=== PATIENT | female | born 1970 | race Caucasian/White ===

== ENCOUNTER → 2018-04-05 14:31 | Outpatient (CLI) | payer OTHER, SELFPAY | PROVIDERS: Family Provider Physician Assistant Medical; PCP Physician Assistant Medical; Visit Provider Physician Assistant Medical | DX: R07.9 Chest pain, unspecified (principal) | CPT/HCPCS: 93016; 93017; 93018 ==

== ENCOUNTER → 2018-04-12 14:16 | Outpatient (CLI) | payer OTHER, SELFPAY ==
--- NOTE | 2018-04-12 14:19 | DI.RAD.S_ITS ---
PROCEDURE: XR CHEST 2V INDICATIONS: lung nodule prior study TECHNIQUE: 2 views of the chest were acquired. COMPARISON: [facility], , CHEST 1 VIEW, 01/02/2018, 17:50. FINDINGS: Surgical changes and devices: None. Lungs and pleura: No pleural effusions or pneumothorax. Lungs are clear. Mediastinum: Mediastinal contours are normal. Heart size is normal. Bones and chest wall: No suspicious bony abnormalities. Soft tissues appear unremarkable. IMPRESSION: No definite nodule seen involving the right lung base on today's examination. Dictated by: Nahum EM Interpreted: Claude Yan MD on 04/12/2018 at 14:43 Approved by: Jake Frost M.D. on 04/15/2018 at 10:19
== END ==
PROVIDERS: PCP Physician Assistant Medical; Visit Provider Family Medicine
DX: R91.1 Solitary pulmonary nodule (principal)
CPT/HCPCS: 71046

== ENCOUNTER 2018-12-30 16:17 | Emergency (ER) | payer OTHER, SELFPAY ==
[2018-12-30 16:39] VITALS: BP 146/93; PULSE 72; RESP 18; TEMP 36.1; O2SAT 98; BMI 32.3
[2018-12-30 17:04] LABS: Bacteria Urine None Seen; RBC Urine None Seen (0-5/HPF); WBC Urine None Seen (0-5/HPF)
[2018-12-30 17:15] VITALS: BP 117/74; PULSE 78; RESP 19
--- NOTE | 2018-12-30 17:20 | DI.CT.S_ITS ---
PROCEDURE: CT HEAD/BRAIN WO CON INDICATIONS: right arm numbness TECHNIQUE: Noncontrast 4.5 mm thick angled axial sections acquired from the foramen magnum to the vertex, with coronal and sagittal reformats. For radiation dose reduction, the following was used: automated exposure control, adjustment of mA and/or kV according to patient size. COMPARISON: None. FINDINGS: Image quality: Excellent. CSF spaces: Basal cisterns are patent. No extra-axial fluid collections. Ventricles are normal in size and shape. Brain: No midline shift. No intracranial masses or hemorrhage. Garcia-white matter interface is normal. Skull and face: Calvarium and visualized facial bones are intact, without suspicious lesions. Sinuses: Visualized sinuses and mastoids are clear. IMPRESSION: No acute intracranial process is seen. If there is strong clinical suspicion for an acute stroke, please consider an MRI for further evaluation, as it is more sensitive (assuming that there is no contraindication to MRI). Dictated by: Eleazar Fleming M.D. on 12/30/2018 at 16:57 Approved by: Eleazar Fleming M.D. on 12/30/2018 at 16:58
[2018-12-30 17:35] LABS: Add Manual Diff / Slide Review NO; Basophils Absolute Auto 100 /uL (0-100); Eosinophils Absolute Auto 100 /uL (0-450); Eosinophils Percent Auto 1.2 % (2-4); Hematocrit 36.6 % (36-46); Hemoglobin 11.6 g/dL (12.0-16.0); Lymphocytes Absolute Auto 2900 /uL (1100-4500); Lymphocytes Percent Auto 26.5 % (25-40); Mean Corpuscular HGB Conc 31.8 % (30-36); Mean Corpuscular Hemoglobin 25.4 PG (26-34); Mean Corpuscular Volume 79.8 fL (80-100); Monocytes Absolute Auto 1000 /uL (0-900); Monocytes Percent Auto 9.3 % (3-14); Neutrophils Absolute Auto 6800 /uL (1500-7000); Platelet Count 335 X10^3/uL (150-400); Red Blood Cell Count 4.58 X10^6/uL (4.0-5.2); Red Cell Distribution Width 16.6 % (11.6-14.8); White Blood Cell Count 10.9 X10^3/uL (4.5-11.0)
[2018-12-30 17:37] LABS: INR 0.9 (0.9-1.3); Prothrombin Time 10.8 SECONDS (10.1-12.7)
[2018-12-30 17:39] LABS: PTT Partial Thromboplastin Tim 25 SECONDS (26.4-36.2)
[2018-12-30 17:43] LABS: Culture Indicated Urine Specimen Cultured; Squamous Epithelial Cell Urine 1-5 /HPF
[2018-12-30 17:43] LABS: BUN Creatinine Ratio 17.5 (6-22); Blood Urea Nitrogen 14 mg/dL (7-17); Calcium 8.9 mg/dL (8.4-10.2); Carbon Dioxide 20 mmol/L (22-32); Chloride 107 mmol/L (98-107); Estimated Glomerular Filt Rate > 60.0 mL/min (>60); Glucose 88 mg/dL (70-100); HEMOLYSIS < 15 (0-50); Potassium 3.6 mmol/L (3.4-5.1); Sodium 139 mmol/L (137-145)
[2018-12-30 17:55] LABS: Troponin I < 0.012 ng/mL (0.01-0.034)
[2018-12-30 18:04] VITALS: BP 142/83; PULSE 52; RESP 18; O2SAT 100
--- NOTE | 2018-12-30 18:19 | ED_ITS ---
HPI - Neuro Symptoms/Deficit General Chief Complaint: Neuro Symptoms/Deficit Stated Complaint: NAUSEA NUMBNESS OF RT ARM SOME SWELLING Time Seen by Provider: 12/30/18 17:14 Source: patient Mode of arrival: ambulatory Limitations: no limitations History of Present Illness HPI Narrative: Patient is a 48-year-old female who presents with right sided symptoms starting around 2:00 p.m.. She said she was sorting boxes of screws and things she was in walking down the hallway when she got that her right forearm and right hand were numb. She did not have much control rate was unable to sign her name when she arrived to the ED. She also has some right-sided facial numbness she was dizzy and lightheaded feeling nauseated but no vomiting. She did not notice any leg weakness at the time. She is having blurry vision but no black or loss of vision. Her right hand and arm symptoms have now improved lately. Onset (ago): hour(s) Location: speech, right face and right arm On Anticoagulants: No Related Data Home Medications Medication Instructions Recorded Confirmed aspirin 81 mg chewable tablet 81 mg PO DAILY 04/12/18 12/30/18 amlodipine 5 mg tablet 5 mg PO QPM tab 09/10/18 12/30/18 metoprolol succinate 100 mg PO QPM 12/30/18 12/30/18 Allergies Allergy/AdvReac Type Severity Reaction Status Date / Time No Known Allergies Allergy Uncoded 09/10/18 16:19 Review of Systems Review of Systems ROS Unobtainable: All systems reviewed & are unremarkable except as noted in HPI and below Constitutional Denies chills, Denies fever(s), Denies lethargy and Denies weakness Eyes Reports blurry vision and Denies diplopia ENT Ears, Nose, Mouth, and Throat: Denies change in voice, Denies neck pain and Denies sore throat Cardiovascular Denies chest pain, Denies irregular heart rhythm, Denies lightheadedness, Denies palpitations, Denies dyspnea, Denies dyspnea on exertion and Denies orthopnea Respiratory Denies cough, Denies dyspnea, Denies dyspnea on exertion and Denies wheezing Gastrointestinal Gastrointestinal: Denies abdominal pain, Denies change in bowel habits, Denies diarrhea, Denies nausea and Denies vomiting Genitourinary Denies hematuria, Denies flank pain, Denies urinary incontinence and Denies urinary urgency Musculoskeletal Denies neck pain Integumentary/Breasts Denies pruritus, Denies erythema, Denies rash and Denies wounds Neurologic Denies confusion and Denies weakness Psychiatric Denies anxiety, Denies confusion, Denies depression, Denies homicidal ideation and Denies suicidal ideation Endocrine Denies palpitations Hematologic/Lymphatic Denies easy bruising Allergic/Immunologic Denies wheezing PFSH Medical History Obesity (BMI 30.0-34.9) (Chronic) Low back pain (Chronic) Hypertension (Chronic) Lung nodule (Resolved) Family History Mother Hypertension Hyperlipidemia Diabetes mellitus Cancer Father Myocardial infarct Arrhythmia Social History marital status: unmarried,single household members: children pets and animals: Yes education level: master's degree occupational status: employed other: gardening,hiking water heater temp set < 120 deg: No working smoke detector in home: Yes fire extinguisher in home: Yes carbon monox detector in home: Yes firearms in home: No Smoking Status: Never smoker alcohol intake: current substance use type: does not use during the past year weight has: increased > 10 lbs well-balanced diet: about half the time daily servings fruits/ve-4 caffeine: Yes eating out: 1-3 times/week frequency: 1-2 times per week duration: 15-30 minutes/day Family History Mother Hypertension Hyperlipidemia Diabetes mellitus Cancer Father Myocardial infarct Arrhythmia Social History marital status: unmarried,single household members: children pets and animals: Yes education level: master's degree occupational status: employed other: gardening,hiking water heater temp set < 120 deg: No working smoke detector in home: Yes fire extinguisher in home: Yes carbon monox detector in home: Yes firearms in home: No Smoking Status: Never smoker alcohol intake: current substance use type: does not use during the past year weight has: increased > 10 lbs well-balanced diet: about half the time daily servings fruits/ve-4 caffeine: Yes eating out: 1-3 times/week frequency: 1-2 times per week duration: 15-30 minutes/day Exam Initial Vital Signs Initial Vital Signs: Vital Signs Temperature 97.0 F L 12/30/18 16:39 Pulse Rate 72 12/30/18 16:39 Respiratory Rate 18 12/30/18 16:39 Blood Pressure 146/93 H 12/30/18 16:39 Pulse Oximetry 98 12/30/18 16:39 Const General: cooperative and well developed Nutritional Appearance: well nourished Orientation: alert, awake, oriented x3 and not confused [facility] Head: normal to inspection and normocephalic Eyes General: appearance normal, both eyes and all related structures Eyelids: eyelids normal Conjunctivae: conjunctivae normal Sclera: sclerae normal Pupils: PERRL EOM: EOM intact bilaterally Neck Neck: normal visual inspection, trachea midline, No lymphadenopathy, No midline deformity and No JVD Lymphatic: No lymphedema Chest Chest: normal inspection of the chest Resp Effort & Inspection: normal respiratory effort, able to speak in complete sentences, no respiratory distress and no use of accessory muscles Auscultation: clear to auscultation bilaterally, no rales, no rhonchi and no wheezes Cardio Rate: regular rate Rhythm: regular rhythm Heart Sounds: no click, no gallops, no murmurs and no rubs Pulses: normal peripheral pulses GI Inspection: non-distended Palpation: soft, no hepatosplenomegaly, No guarding, No pulsatile mass and No tender Auscultation: normal bowel sounds Neuro General: alert, awake and oriented x3 Cranial Nerves: CN's II-XI intact bilaterally Speech: speech normal Sensory Exam: no sensory deficits noted Coordination: suqsep-uv-khop test normal and qhic-rf-srrr test normal Scores ABCD2 Age >= 60 years: no Initial BP. Either SBP >= 140 or DBP >= 90.: yes Clinical features of the TIA: unilateral weakness Duration of symptoms: 10-59 minutes History of diabetes: no ABCD2 Score: 4 NIH Stroke Scale Level of Conciousness: Alert, keenly responsive Ask month/age: Answers both questions correctly. Open/close eyes, close hand: Performs both tasks correctly Best gaze horizontal: Normal Visual mccain: No visual loss Facial palsy: Normal symetrical movement Left arm drift: No drift for full 10 sec Right arm drift: No drift for full 10 sec Left leg drift: No drift for full 10 sec Right leg drift: Drifts down, not to bed Limb ataxia: Absent Sensory on face/arms/legs: Normal, no sensory loss Best language: No aphasia, normal Dysarthria: Normal Extinction or inattention: No abnormality Total NIH Stroke scale score: 1 Course Orders Ordered: ED Orders 12/30/18 16:55 Basic Metabolic Panel Stat Complete Blood Count AUTO DIFF Stat Partial Thromboplastin Time Stat Prothrombin Time INR Stat Troponin I Stat 12/30/18 17:00 Urine Culture Stat Urine Microscopic Stat 12/30/18 17:09 EKG-12 Lead Routine 12/30/18 17:20 CT head/brain wo con Stat 12/30/18 18:33 CT angio head and neck Stat Discontinued Medications Aspirin (Aspirin Chew) 324 mg PO NOW ONE Stop: 12/30/18 18:35 Last Admin: 12/30/18 19:06 Dose: 324 mg Consultations Consultation #1: Dr. Rachel on-call for Dr. Garcia, has been updated patient's symptoms and test results. Resolving symptoms. Recommend taking aspi rin daily as following up closely with for further testing. Time: 20:15 Vital Signs - 8 hr 12/30/18 18:04 12/30/18 19:12 12/30/18 19:30 Pulse Rate 52 L 64 65 Respiratory Rate 18 15 16 Blood Pressure Blood Pressure [Right Arm] 142/83 H 119/65 122/70 Pulse Oximetry 100 99 97 12/30/18 20:29 Pulse Rate 65 Respiratory Rate 17 Blood Pressure 121/77 Blood Pressure [Right Arm] Pulse Oximetry 96 MDM - Neuro Symptoms/Deficit Lab Data Attestation: I reviewed the patient's lab results. Result diagrams: 12/30/18 16:55 12/30/18 16:55 Lab Results 12/30/18 12/30/18 12/30/18 Range/Units 16:55 16:55 16:55 WBC 10.9 (4.5-11.0) X10^3/uL RBC 4.58 (4.0-5.2) X10^6/uL Hgb 11.6 L (12.0-16.0) g/dL Hct 36.6 (36-46) % MCV 79.8 L (80-100) fL MCH 25.4 L (26-34) PG MCHC 31.8 (30-36) % RDW 16.6 H (11.6-14.8) % Plt Count 335 (150-400) X10^3/uL Neut % (Auto) 62.0 (50-75) % Lymph % (Auto) 26.5 (25-40) % [place] % (Auto) 9.3 (3-14) % Eos % (Auto) 1.2 L (2-4) % Baso % (Auto) 1.0 (0-2) % Neut # (Auto) 6800 (8417-1027) /uL Lymph # (Auto) 2900 (7339-4619) /uL [place] # (Auto) 1000 H (0-900) /uL Eos # (Auto) 100 (0-450) /uL Baso # (Auto) 100 (0-100) /uL PT 10.8 (10.1-12.7) SECONDS INR 0.9 (0.9-1.3) APTT 25 L (26.4-36.2) SECONDS Sodium 139 (137-145) mmol/L Potassium 3.6 (3.4-5.1) mmol/L Chloride 107 (98-107) mmol/L Carbon Dioxide 20 L (22-32) mmol/L BUN 14 (7-17) mg/dL Creatinine 0.80 (0.52-1.04) mg/dL Estimated GFR > 60.0 (>60) mL/min BUN/Creatinine Ratio 17.5 (6-22) Glucose 88 (70-100) mg/dL Calcium 8.9 (8.4-10.2) mg/dL Troponin I < 0.012 (0.01-0.034) ng/mL Urine RBC (0-5/HPF) Urine WBC (0-5/HPF) Ur Squamous Epith Cells Urine Bacteria (None) Ur Culture Indicated? 12/30/18 Range/Units 17:00 WBC (4.5-11.0) X10^3/uL RBC (4.0-5.2) X10^6/uL Hgb (12.0-16.0) g/dL Hct (36-46) % MCV (80-100) fL MCH (26-34) PG MCHC (30-36) % RDW (11.6-14.8) % Plt Count (150-400) X10^3/uL Neut % (Auto) (50-75) % Lymph % (Auto) (25-40) % [place] % (Auto) (3-14) % Eos % (Auto) (2-4) % Baso % (Auto) (0-2) % Neut # (Auto) (3022-2920) /uL Lymph # (Auto) (5975-8722) /uL [place] # (Auto) (0-900) /uL Eos # (Auto) (0-450) /uL Baso # (Auto) (0-100) /uL PT (10.1-12.7) SECONDS INR (0.9-1.3) APTT (26.4-36.2) SECONDS Sodium (137-145) mmol/L Potassium (3.4-5.1) mmol/L Chloride (98-107) mmol/L Carbon Dioxide (22-32) mmol/L BUN (7-17) mg/dL Creatinine (0.52-1.04) mg/dL Estimated GFR (>60) mL/min BUN/Creatinine Ratio (6-22) Glucose (70-100) mg/dL Calcium (8.4-10.2) mg/dL Troponin I (0.01-0.034) ng/mL Urine RBC None seen (0-5/HPF) Urine WBC None seen (0-5/HPF) Ur Squamous Epith Cells 1-5 /hpf Urine Bacteria None seen (None) Ur Culture Indicated? Specimen cultured Point of Care Testing Test Results Negative Urine Dip Bedside Urine Glucose Negative Bedside Urine Bilirubin - Negative Bedside Urine Ketone - Negative Urine Specific [place] 1.010 Bedside Urine Occult Blood + Bedside Urine pH 6.0 Bedside Urine Protein - Negative Bedside Urine Urobilinogen - Negative Bedside Urine Nitrite - Negative Bedside Urine Leukocytes +/- [address] scan - head: Radiologist's impression: PROCEDURE: CT HEAD/BRAIN WO CON INDICATIONS: right arm numbness TECHNIQUE: Noncontrast 4.5 mm thick angled axial sections acquired from the foramen magnum to the vertex, with coronal and sagittal reformats. For radiation dose reduction, the following was used: automated exposure control, adjustment of mA and/or kV according to patient size. COMPARISON: None. FINDINGS: Image quality: Excellent. CSF spaces: Basal cisterns are patent. No extra-axial fluid collections. Ventricles are normal in size and shape. Brain: No midline shift. No intracranial masses or hemorrhage. Garcia-white matter interface is normal. Skull and face: Calvarium and visualized facial bones are intact, without suspicious lesions. Sinuses: Visualized sinuses and mastoids are clear. IMPRESSION: No acute intracranial process is seen. If there is strong clinical suspicion for an acute stroke, please consider an MRI for further evaluation, as it is more sensitive (assuming that there is no contraindication to MRI). Dictated by: Eleazar Fleming M.D. on 12/30/2018 at 16:57 CTA head and Neck: Radiologist's impression: PROCEDURE: CT ANGIO HEAD AND NECK INDICATIONS: right leg and arm weakness no tpa TECHNIQUE: Pre-contrast 4.5 mm thick sections acquired from the foramen magnum to the vertex. After the administration of intravenous contrast, 1 mm thick sections acquired from the aortic arch through the [place] of Up. Post-contrast 4.5 mm thick sections then re- acquired from the foramen magnum to the vertex. 3-dimensional jldnkoa-misbhpgjn-hp ojection (MIP) and/or volume rendering reformats were acquired of the central intracranial vasculature and neck separately. COMPARISON: [facility], CT, CT HEAD/BRAIN WO CON, 12/30/2018, 17:17. FINDINGS: Image quality: Excellent. BRAIN: CSF spaces: Ventricles are normal in size and shape. Basal cisterns are patent. No extra-axial fluid collections. Brain: No midline shift. No intracranial bleeds or masses. Garcia-white matter interface appears intact. Skull and face: Calvarium and facial bones appear intact, without suspicious lesions. Orbits appear normal. Sinuses: There is an air-fluid level in the right maxillary sinus. Mastoids are clear. HEAD CT ANGIOGRAPHY: Anterior circulation: Intracranial internal carotid arteries are normal in size and flow. There is calcification in the cavernous segment of the right internal carotid artery. The flow within the paired anterior cerebral arteries is normal and symmetric. The flow within the middle cerebral arteries is normal and symmetric. The anterior communicating artery is seen. No aneurysms are seen. Posterior circulation: Visualized portions of the vertebral arteries demonst rate normal caliber, and join to form a normal appearing basilar artery. Flow within the posterior cerebral arteries is normal and symmetric. No aneurysms are seen. NECK CT ANGIOGRAPHY: Carotid system: The great vessels demonstrate a conventional anatomy as they arise from the aortic arch. The origins of the common carotid arteries appear patent. The common carotid arteries demonstrate normal caliber and courses. The bifurcation regions are both widely patent. The internal carotid arteries demonstrate normal calibers and courses. Posterior circulation: The origins of the vertebral arteries both appear widely patent. The more superior extracranial portions of both vertebral arteries also demonstrate normal courses and calibers. They join to form a normal appearing basilar artery. Soft tissues: Visualized neck soft tissues demonstrate no suspicious abnormal ities. Bones: No suspicious bony lesions. Visualized cervical spine appears normally aligned. There is severe degenerative disease at C5-C6 causing moderate central canal stenosis. IMPRESSION: 1. No acute intracranial abnormality. 2. Right maxillary sinusitis. 3. No high-grade stenosis or occlusion in anterior circulations. 4. No high-grade stenosis or occlusion in posterior circulations. 5. Normal cervical carotid arteries bilaterally. 6. Normal cervical vertebral arteries bilaterally. 7. Severe degenerative disc disease at C5-C6 causing moderate central canal stenosis. Any quantitative measurements of stenosis were performed using NASCET criteria. Dictated by: Roseline Saunders M.D. on 12/30/2018 at 19:34 ECG Data Attestation: I personally reviewed and interpreted this ECG as follows: Interpretation: Normal sinus rhythm rate 58 T-wave inversion noted in lead 3 similar to previous EKG no acute ST changes MDM Narrative Medical decision making narrative: Patient's right arm symptoms have improved she is not a candidate for tPA. After CT a patient is re-evaluated her right leg symptoms have also completely improved. She was not complaining of right leg symptoms when she arrived. In fact she said that she had some his right leg symptoms of while going was actually in physical therapy for some back issues in right leg issues. It is difficult for her to tell me if this is new or old. However it has resolved at this time. She does have a history of hypertension blood pressure initially slightly elevated however it has come down without any intervention. I spoke with patient's PCP will follow up as outpatient for possible MRI carotid Doppler and echocardiogram. Discussed with patient that this may be a mini-stroke recommended she take aspirin daily. I discussed all findings with the patient Education has been performed regarding treatment plan, diagnosis, warning signs and symptoms and all concerns have been addressed. Verbally agree with and understood all of the above. Discharge Plan Departure Patient Disposition: Home Clinical Impression: Transient cerebral ischemia Qualifiers: Transient cerebral ischemia type: unspecified Qualified Code(s): G45.9 - Transient cerebral ischemic attack, unspecified Discharge Date/Time: 12/30/18 20:30 Interventions: ED Discharge Assessment Last Done: 12/30/18 20:29 Instructions: DI for Transient Ischemic Attack Activity Restrictions/Additional Instructions: *You have been diagnosed with TIA *What to do: you will likely require further outpatient testing such as carotid Doppler, echocardiogram and MRI obvious can be scheduled in should be scheduled with your primary care doctor this week. *Continue to take medications as directed Aspirin 325 mg once a day *Follow up with your primary care provider in 2-3 days *Return to ER if you should have facial droop, confusion, difficulty speaking, weakness in 1 side or any new, worsening or concerning symptoms Prescriptions: No Action aspirin 81 mg tablet,chewable 81 mg PO DAILY RF: 0 amlodipine 5 mg tablet 5 mg PO QPM RF: 0 metoprolol succinate 100 mg tablet extended release 24 hr 100 mg PO QPM RF: 0 Referrals: Maura Garcia MD [Primary Care Provider] -
--- NOTE | 2018-12-30 18:33 | DI.CT.S_ITS ---
PROCEDURE: CT ANGIO HEAD AND NECK INDICATIONS: right leg and arm weakness no tpa TECHNIQUE: Pre-contrast 4.5 mm thick sections acquired from the foramen magnum to the vertex. After the administration of intravenous contrast, 1 mm thick sections acquired from the aortic arch through the [place] of Up. Post-contrast 4.5 mm thick sections then re-acquired from the foramen magnum to the vertex. 3-dimensional hzaukji-hdnhlraxo-nxxbkqozap (MIP) and/or volume rendering reformats were acquired of the central intracranial vasculature and neck separately. COMPARISON: [facility], CT, CT HEAD/BRAIN WO CON, 12/30/2018, 17:17. FINDINGS: Image quality: Excellent. BRAIN: CSF spaces: Ventricles are normal in size and shape. Basal cisterns are patent. No extra-axial fluid collections. Brain: No midline shift. No intracranial bleeds or masses. Garcia-white matter interface appears intact. Skull and face: Calvarium and facial bones appear intact, without suspicious lesions. Orbits appear normal. Sinuses: There is an air-fluid level in the right maxillary sinus. Mastoids are clear. HEAD CT ANGIOGRAPHY: Anterior circulation: Intracranial internal carotid arteries are normal in size and flow. There is calcification in the cavernous segment of the right internal carotid artery. The flow within the paired anterior cerebral arteries is normal and symmetric. The flow within the middle cerebral arteries is normal and symmetric. The anterior communicating artery is seen. No aneurysms are seen. Posterior circulation: Visualized portions of the vertebral arteries demonstrate normal caliber, and join to form a normal appearing basilar artery. Flow within the posterior cerebral arteries is normal and symmetric. No aneurysms are seen. NECK CT ANGIOGRAPHY: Carotid system: The great vessels demonstrate a conventional anatomy as they arise from the aortic arch. The origins of the common carotid arteries appear patent. The common carotid arteries demonstrate normal caliber and courses. The bifurcation regions are both widely patent. The internal carotid arteries demonstrate normal calibers and courses. Posterior circulation: The origins of the vertebral arteries both appear widely patent. The more superior extracranial portions of both vertebral arteries also demonstrate normal courses and calibers. They join to form a normal appearing basilar artery. Soft tissues: Visualized neck soft tissues demonstrate no suspicious abnormalities. Bones: No suspicious bony lesions. Visualized cervical spine appears normally aligned. There is severe degenerative disease at C5-C6 causing moderate central canal stenosis. IMPRESSION: 1. No acute intracranial abnormality. 2. Right maxillary sinusitis. 3. No high-grade stenosis or occlusion in anterior circulations. 4. No high-grade stenosis or occlusion in posterior circulations. 5. Normal cervical carotid arteries bilaterally. 6. Normal cervical vertebral arteries bilaterally. 7. Severe degenerative disc disease at C5-C6 causing moderate central canal stenosis. Any quantitative measurements of stenosis were performed using NASCET criteria. Dictated by: Roseline Saunders M.D. on 12/30/2018 at 19:34 Approved by: Roseline Saunders M.D. on 12/30/2018 at 19:42
[2018-12-30] MEDS: ASPIRIN 81 MG TAB 324 MG PO (19:06)
[2018-12-30 19:12] VITALS: BP 119/65; PULSE 64; RESP 15; O2SAT 99
[2018-12-30 19:30] VITALS: BP 122/70; PULSE 65; RESP 16; O2SAT 97
--- NOTE | 2018-12-30 20:28 | PC.NURSE ---
Pt stated it was difficult to use right arm, yet pt used right arm to gesture during conversation.
[2018-12-30 20:29] VITALS: BP 121/77; PULSE 65; RESP 17; O2SAT 96
== END 2018-12-30 20:30 | disposition home or self-care (01) ==
PROVIDERS: Emergency Medicine; Emergency Provider Emergency Medicine; Family Provider Physician Assistant Medical; PCP Family Medicine
DX: G45.9 Transient cerebral ischemic attack, unspecified (principal)
CPT/HCPCS: 36591; 70450; 70496; 70498; 80048; 81003; 81015; 81025; 84484; 85025; 85610; 85730; 87086; 93005; 99283; 99285; 99291; Q9967

== ENCOUNTER → 2019-01-06 06:07 | Outpatient (CLI) | payer OTHER, SELFPAY ==
--- NOTE | 2019-01-06 06:09 | DI.MRI.S_ITS ---
PROCEDURE: MR STROKE Pre- and post-contrast brain MRI, non-contrast brain MR angiogram, pre- and postcontrast neck MR angiogram INDICATIONS: likely TIA TECHNIQUE: Brain: Noncontrast axial T1 spin echo, axial T2 fast spin echo, sagittal and axial FLAIR, coronal T2 fast spin echo, axial gradient echo, axial diffusion and ADC through the brain. After the administration of contrast, axial 3D VIBE of the cranial vasculature and brain. Brain MRA: Non-contrast 3-D time of flight MR angiogram, with multiple xdnntpo-wqowigrav-iekwjlwexn (MIP) reformats performed. Neck MRA: Axial and sagittal TruFISP through the neck. Coronal dynamic MR angiogram during administration of contrast in the arterial and venous phases, with 3-dimenstional zupelxm-ykceotnij-wdbubrozye (MIP) reformats constructed from subtraction images. COMPARISON: [facility], CT, CT ANGIO HEAD AND NECK, 12/30/2018, 18:43. [facility], CT, CT HEAD/BRAIN WO CON, 12/30/2018, 17:17. FINDINGS: Image quality: Excellent. BRAIN: CSF spaces: Ventricles are normal in size and shape. Basal cisterns are patent. No extra-axial fluid collections. Brain: No intracranial bleeds or mass effects. Garcia-white matter interface is normal. Diffusion weighted images show no acute ischemic insults. There are minimal periventricular and subcortical white matter chronic microvascular ischemic changes. Brainstem appears normal. Normal intravascular flow voids are present. No abnormal intracranial enhancement. Skull and face: Calvarial marrow signal is normal. Orbits appear normal. Sinuses: Mucosal thickening causes complete opacification of the right maxillary sinus. mastoids are clear. BRAIN MR ANGIOGRAM: Anterior circulation: Intracranial internal carotid arteries are normal in size and enhancement. The flow within the paired anterior cerebral arteries is normal and symmetric. The flow within the middle cerebral arteries is normal and symmetric. The anterior communicating artery is seen. No stenoses, occlusions, or aneurysms. Posterior circulation: The visualized portions of the vertebral arteries demonstrate normal caliber, and join to form a normal appearing basilar artery. The flow within the posterior cerebral arteries is normal and symmetric. No stenoses, occlusions, or aneurysms. Dural sinuses demonstrate normal postcontrast enhancement. NECK MR ANGIOGRAM: Carotids: Great vessels demonstrate a conventional anatomy as they arise from the aortic arch. The origins of the common carotid arteries appear patent. The calibers and courses of both common carotid arteries are normal. The bifurcation regions appear normal bilaterally. The internal carotid arteries demonstrate normal course and caliber. Posterior circulation: The origins of the vertebral arteries appear patent. More superior portions of both vertebral arteries demonstrate normal course and caliber, and join to form a normal appearing basilar artery. Miscellaneous: Subclavian arteries appear patent. Pre-contrast images through the neck show no soft tissue abnormalities. IMPRESSION: BRAIN MRI: 1. No acute intracranial disease process. 2. No areas of acute or chronic infarction. 3. Minimal periventricular and subcortical white matter chronic microvascular ischemic changes. 4. Severe right maxillary sinusitis. BRAIN MR ANGIOGRAM: Negative examination. NECK MR ANGIOGRAM: Negative examination. Dictated by: Elba Singh MD, PhD on 01/06/2019 at 11:33 Approved by: Elba Singh MD, PhD on 01/06/2019 at 11:43
== END ==
PROVIDERS: PCP Family Medicine; Visit Provider Family Medicine
DX: G45.9 Transient cerebral ischemic attack, unspecified (principal); J32.0 Chronic maxillary sinusitis
CPT/HCPCS: 70553

== ENCOUNTER → 2019-04-21 09:00 | Outpatient (CLI) | payer OTHER, SELFPAY ==
[2019-04-21 10:11] LABS: Cholesterol 148 mg/dL (140-199); HDL Cholesterol 38 mg/dL (40-60); LDL Cholesterol Calculated 92 mg/dL (<100); Triglycerides 90 mg/dL (35-150)
== END ==
PROVIDERS: PCP Family Medicine; Visit Provider Family Medicine
DX: G45.9 Transient cerebral ischemic attack, unspecified (principal)
CPT/HCPCS: 36415; 80061

== ENCOUNTER → 2022-02-10 12:01 | Outpatient (CLI) | payer OTHER, MEDICAID, SELFPAY ==
[2022-02-10 13:15] LABS: Alanine Aminotransferase 25 IU/L (<35); Albumin 4.4 g/dL (3.5-5.0); Albumin Globulin Ratio 1.8 (1.0-2.8); Alkaline Phosphatase 71 U/L (38-126); Aspartate Aminotransferase 28 IU/L (14-36); BUN Creatinine Ratio 22.2 (6-22); Bilirubin Total 0.6 mg/dL (0.2-1.3); Blood Urea Nitrogen 20 mg/dL (7-17); Calcium 9.4 mg/dL (8.4-10.2); Carbon Dioxide 25 mmol/L (22-32); Chloride 110 mmol/L (98-107); Cholesterol 197 mg/dL (140-199); Estimated Glomerular Filt Rate > 60.0 mL/min (>60); Globulin 2.5 g/dL (1.7-4.1); Glucose 87 mg/dL (70-100); HDL Cholesterol 51 mg/dL (40-60); HEMOLYSIS < 15 (0-50); LDL Cholesterol Calculated 109 mg/dL (<100); Potassium 4.5 mmol/L (3.4-5.1); Sodium 141 mmol/L (137-145); Total Protein 6.9 g/dL (6.3-8.2); Triglycerides 185 mg/dL (35-150)
[2022-02-10 16:01] LABS: Microalbumin Urine Random 0.9 mg/dL (0-1.6)
[2022-02-10 16:03] LABS: Creatinine Urine Random 119.6 mg/dL; Microalbumi Creatinin Ratio Ur 7.5 ug/mg CR (<30)
== END ==
PROVIDERS: PCP Family Medicine; Referring Provider Family Medicine; Visit Provider Family Medicine
DX: E66.9 Obesity, unspecified (principal); I10 Essential (primary) hypertension
CPT/HCPCS: 36415; 80053; 80061; 82043; 82570

== ENCOUNTER → 2023-07-27 14:44 | Outpatient (CLI) | payer OTHER, SELFPAY ==
--- NOTE | 2023-07-27 14:45 | DI.MG.S_ITS ---
BILATERAL DIGITAL SCREENING MAMMOGRAM 3D/2D WITH CAD: 07/27/2023 CLINICAL: Routine screening. Family history of breast cancer. Comparison is made to exams dated: 03/11/2018 mammogram and 03/09/2017 mammogram - [facility]. There are scattered areas of fibroglandular density in both breasts (category b / 25%-50% glandular tissue). Current study was also evaluated with a Computer Aided Detection (CAD) system. No significant masses, calcifications, or other findings are seen in either breast. There has been no significant interval change. IMPRESSION: NEGATIVE There is no mammographic evidence of malignancy. A 1 year screening mammogram is recommended. Based on the Tyrer Cuzick model (a risk assessment model) the patient's lifetime risk is 17.9% and her 10 year risk is 4.8%. According to the ACR, ACS, and NCCN guidelines, an annual breast MRI exam along with mammogram is recommended if the patient's lifetime risk is 20% or greater. This exam was interpreted at Station ID: [id number]. NOTE: For mammograms, a report in lay terms will be sent to the patient. Approximately 15% of breast malignancies will not be visualized mammographically. In the management of a palpable breast mass, a negative mammogram must not discourage biopsy of a clinically suspicious lesion. Electronically Signed By: Damian clark/ruddy:07/27/2023 15:44:35 letter sent: Normal Exam ACR BI-RADS Category 1: Negative 3341F
== END ==
PROVIDERS: Family Provider Family Medicine; PCP Family Medicine; Referring Provider Family Medicine; Visit Provider Family Medicine
DX: Z12.31 Encounter for screening mammogram for malignant neoplasm of breast (principal); Z80.3 Family history of malignant neoplasm of breast
CPT/HCPCS: 77063; 77067

== ENCOUNTER 2023-08-14 08:06 | Day surgery (SDC) | payer OTHER, SELFPAY ==
[2023-08-14 08:22] VITALS: BMI 35.5
[2023-08-14 08:31] VITALS: BP 135/79; PULSE 68; RESP 16; TEMP 36.6; O2SAT 96
[2023-08-14] MEDS: LACTATED RINGERS 1,000 ML 150 ML IV (08:40)
--- NOTE | 2023-08-14 09:01 | PM.HP.1 ---
History of Present Illness History of Present Illness Date Patient Seen: 08/14/23 Time Patient Seen: 09:01 Chief complaint: Colonoscopy Narrative: The patient presents for colorectal screening. They have never had any previous examination for such. No personal or family history of colon cancer. Rarely she will have some dark appearing blood in her stool. [facility] Medical History Hypertension Low back pain Lung nodule Obesity (BMI 30.0-34.9) Family History Mother Hypertension Hyperlipidemia Diabetes mellitus Cancer Father Myocardial infarct Arrhythmia Social History marital status: unmarried,single number of children: 1 household members: children lives independently: Yes caregiver/support person: No housing: house pets and animals: Yes education level: master's degree occupational status: employed other: gardening,hiking water heater temp set < 120 deg: No working smoke detector in home: Yes fire extinguisher in home: Yes carbon monox detector in home: Yes firearms in home: No Smoking Status: Never smoker second hand exposure: No alcohol intake: current substance use type: does not use during the past year weight has: increased > 10 lbs well-balanced diet: about half the time daily servings fruits/ve-4 caffeine: Yes eating out: 1-3 times/week frequency: 1-2 times per week duration: 15-30 minutes/day Meds Home Medications and Allergies Home Medications Medication Instructions Recorded Confirmed Type aspirin 81 mg chewable tablet 81 mg PO DAILY 04/12/18 08/14/23 History hydroxyzine HCl 25 mg tablet 25 mg PO TID PRN anxiety #30 tabs 09/20/22 08/14/23 Rx metoprolol succinate 50 mg See Rx Instructions .Route 04/04/23 Rx tablet,extended release 24 hr .COMPLEX #30 tabs amlodipine 5 mg tablet 5 mg PO DAILY #90 tabs 04/05/23 08/14/23 Rx Allergies Allergy/AdvReac Type Severity Reaction Status Date / Time No Known Allergies Allergy Uncoded 08/14/23 08:19 Exam Vital Signs (past 8 hours): - 08/14/23 08:31 Temperature 97.8 F Pulse Rate 68 Respiratory Rate 16 Blood Pressure 135/79 Pulse Oximetry 96 Oxygen Delivery Method Room Air Oxygen Delivery Method Room Air Narrative Exam Narrative: General adult woman alert oriented no acute distress Abdomen soft nontender nondistended Assessment & Plan Assessment & Plan narrative: The patient requires colorectal screening and colonoscopy is recommended. Technical details were discussed. Risks, benefits, alternatives explained. Risks including but not limited to myocardial infarction, aspiration, bleeding, pain, missed lesion, incomplete examination, need for further radiographic studies, colonic perforation, and need for major abdominal surgery were discussed. All questions were answered to their satisfaction, and they are in agreement with this plan.
--- NOTE | 2023-08-14 09:03 | PM.OP.COLON ---
Operative Date/Time/Diagnoses Date of procedure: 08/14/23 Time of procedure: 09:03 Pre-op diagnosis: Colorectal screening Post-op diagnosis: same Procedure & Clinicians Study performed: Colonoscopy Same procedure as scheduled: Yes Indications: 53-year-old woman here for screening colonoscopy Surgeon: Gilberto Camara Procedure Notes Procedure in detail: The history and physical was performed/updated and the patient is ASA class is 2. The procedure was discussed in detail with the patient. Potential risks complications including infection, bleeding, missed diagnosis, perforation, need for surgery, and were explained. Their questions were answered and informed consent was obtained. Patient was brought to the procedure room and placed standard monitoring equipment. The patient's vital signs were monitored continuously throughout the entire procedure. Prior to starting time-out was performed. The patient was placed in the left lateral recumbent position. Procedural sedation was administered by anesthesia. Examination began with a thorough inspection of the perianal area there was no evidence of fissures, fistulae, external hemorrhoids or cutaneous malignancy. The colonoscopy scope was then placed into the anal canal and was advanced to the cecum, which was identified by the ileocecal valve, the appendiceal orifice and the confluence of the taenia. The scope was then slowly withdrawn examining colon thoroughly in all directions, irrigating it of any residual stool. Scope was retroflexed within the rectum No polyps or masses. Normal healthy colon Grade 1 internal hemorrhoids The patient tolerated the procedure well. They will be discharged once criteria are met. The prep was of good/excellent quality. The withdrawl time was * minutes. Specimen(s): none sent Impression: Normal colonoscopy Post-procedure Recommendations: Colonoscopy in 10 years Disposition: same day surgery
[2023-08-14 09:30] VITALS: BP 126/60; PULSE 75; RESP 16; TEMP 36.6; O2SAT 97
[2023-08-14 09:35] VITALS: BP 122/68; PULSE 71; RESP 10; O2SAT 97
[2023-08-14 09:45] VITALS: BP 132/81; PULSE 62; RESP 12; O2SAT 97
== END 2023-08-14 09:52 | disposition home or self-care (01) ==
PROVIDERS: Family Provider Family Medicine; PCP Family Medicine; Referring Provider Surgery; Visit Provider Surgery
PROC: 0DJD8ZZ Inspection of Lower Intestinal Tract, Via Natural or Artificial Opening Endoscopic (ICD-10-PCS; CPT 45378; principal; 2023-08-14 09:15)
DX: Z12.11 Encounter for screening for malignant neoplasm of colon (principal); K64.0 First degree hemorrhoids
CPT/HCPCS: 45378; J2704

== ENCOUNTER → 2023-10-19 13:57 | Outpatient (CLI) | payer OTHER, SELFPAY ==
--- NOTE | 2023-10-19 13:58 | DI.RAD.S_ITS ---
PROCEDURE: XR FOOT LT MIN 3V INDICATIONS: Left 5th toe pain x 2 days after trauma TECHNIQUE: 3 views of the foot were acquired. COMPARISON: None. FINDINGS: Bones: No fractures or dislocations. No suspicious bony lesions. Soft tissues: No tibiotalar joint effusion. Achilles tendon appears normal. IMPRESSION: No acute bony abnormality. Dictated by: Abram Delaney M.D. on 10/19/2023 at 16:00 Approved by: Abram Delaney M.D. on 10/19/2023 at 16:01
== END ==
PROVIDERS: Family Provider Family Medicine; PCP Family Medicine; Referring Provider Physician Assistant; Visit Provider Physician Assistant
DX: S90.122A Contusion of left lesser toe(s) without damage to nail, initial encounter (principal); X58.XXXA Exposure to other specified factors, initial encounter
CPT/HCPCS: 73630

== ENCOUNTER 2023-12-08 13:14 | Emergency (ER) | payer OTHER, SELFPAY ==
[2023-12-08] VITALS (8 sets, daily range): BP systolic 144–194; BP diastolic 70–92; PULSE 44–70; RESP 16–22; TEMP 36.6; O2SAT 98–100; BMI 34.7
[2023-12-08 13:56] LABS: Bacteria Urine Few (2-10); Culture Indicated Urine Specimen Cultured; RBC Urine 10-30/HPF (0-5/HPF); Squamous Epithelial Cell Urine 1-5 /HPF (0-5/HPF); Urine Volume 10mL (spun); WBC Urine 5-10/HPF (0-5/HPF)
[2023-12-08] MEDS: ONDANSETRON 4 MG/2 ML INJ IV (14:01)
[2023-12-08 14:02] LABS: Add Manual Diff / Slide Review NO; Basophils Absolute Auto 100 /uL (0-100); Basophils Percent Auto 0.6 % (0-2); Eosinophils Absolute Auto 0 /uL (0-450); Eosinophils Percent Auto 0.2 % (2-4); Hematocrit 40.9 % (36-46); Hemoglobin 13.6 g/dL (12.0-16.0); Lymphocytes Absolute Auto 2400 /uL (1100-4500); Mean Corpuscular HGB Conc 33.2 % (30-36); Mean Corpuscular Volume 90.3 fL (80-100); Monocytes Absolute Auto 700 /uL (0-900); Monocytes Percent Auto 6.9 % (3-14); Neutrophils Absolute Auto 6300 /uL (1500-7000); Neutrophils Percent Auto 67.3 % (50-75); Platelet Count 259 X10^3/uL (150-400); Red Blood Cell Count 4.54 X10^6/uL (4.0-5.2); White Blood Cell Count 9.4 X10^3/uL (4.5-11.0)
--- NOTE | 2023-12-08 14:02 | ED_ITS ---
HPI - General Adult General Chief complaint: Abdominal Pain Stated complaint: back pain, vomiting and diaherrea Time Seen by Provider: 12/08/23 13:45 Source: patient Mode of arrival: Ambulatory Limitations: no limitations History of Present Illness HPI narrative: Patient is a 53-year-old female. Is here for evaluation of approximately 48 hours of right-sided flank pain that has radiated down to her right lower quadrant. No urinary symptoms. Is also having diarrhea. Some nausea but no vomiting. No fevers. No chest pain. No shortness of breath. Has gone through menopause. No vaginal bleeding. No skin rashes. No recent travel. Related Data Home Medications Medication Instructions Recorded Confirmed aspirin 81 mg chewable tablet 81 mg PO DAILY 04/12/18 10/19/23 Previous Rx's Medication Instructions Recorded hydroxyzine HCl 25 mg tablet 25 mg PO TID PRN anxiety #30 tabs 09/20/22 amlodipine 5 mg tablet 5 mg PO DAILY #90 tabs 04/05/23 metoprolol succinate 50 mg 50 mg PO QPM #90 tabs 10/08/23 tablet,extended release 24 hr hydrocodone 5 mg-acetaminophen 325 1 tab PO Q4-6H PRN pain #10 tabs 12/08/23 mg tablet ondansetron 4 mg disintegrating 4 mg PO Q6H PRN nausea and 12/08/23 tablet vomiting #10 tabs Allergies Allergy/AdvReac Type Severity Reaction Status Date / Time No Known Drug Allergies Allergy Verified 12/08/23 13:37 Review of Systems Review of Systems ROS Unobtainable: All systems reviewed & are unremarkable except as noted in HPI and below Patient History Medical History Obesity (BMI 30.0-34.9) Lung nodule Hypertension Low back pain Family History Mother Hypertension Hyperlipidemia Diabetes mellitus Cancer Father Myocardial infarct Arrhythmia Social History marital status: unmarried,single number of children: 1 household members: children lives independently: Yes caregiver/support person: No housing: house pets and animals: Yes education level: master's degree occupational status: employed other: gardening,hiking water heater temp set < 120 deg: No working smoke detector in home: Yes fire extinguisher in home: Yes carbon monox detector in home: Yes firearms in home: No Smoking Status: Never smoker second hand exposure: No alcohol intake: current substance use type: does not use during the past year weight has: increased > 10 lbs well-balanced diet: about half the time daily servings fruits/ve-4 caffeine: Yes eating out: 1-3 times/week frequency: 1-2 times per week duration: 15-30 minutes/day Smoking Status: Never smoker alcohol intake frequency: a few times a week Substance Use Type: does not use Exam Initial Vital Signs Initial Vital Signs: Vital Signs Temperature 97.9 F 12/08/23 13:30 Pulse Rate 60 12/08/23 13:30 Respiratory Rate 16 12/08/23 13:30 Blood Pressure 194/92 H 12/08/23 13:30 Pulse Oximetry 100 12/08/23 13:30 Oxygen Delivery Method Room Air 12/08/23 13:30 HENMT Head: normal to inspection and normocephalic GI Inspection: normal to inspection and non-distended Palpation: soft, No firm, No guarding and tender (Right-sided abdomen) Back/Spine/Pelvis Back: CVA tenderness right Skin General: no rashes or lesions noted Neuro General: patient alert, patient awake and moves all extremities Extrem General: normal to inspection Course Orders Ordered: ED Orders 12/08/23 13:43 Urine Culture Stat Urine Microscopic Stat 12/08/23 13:50 Complete Blood Count AUTO DIFF Stat Comprehensive Metabolic Panel Stat Lipase Stat 12/08/23 14:03 CT abdomen pelvis w con Stat Ondansetron HCl (Ondansetron 4 Mg Odt) 4 mg PO NOW PRN PRN Reason: Nausea And Vomiting Ondansetron HCl (Ondansetron 4 Mg/2 Ml Inj) 4 mg IV NOW PRN PRN Reason: Nausea And Vomiting Last Admin: 12/08/23 14:01 Dose: 4 mg Documented By: SHASTA Vital Signs Vital signs: Vital Signs - 8 hr 12/08/23 13:30 12/08/23 13:42 12/08/23 13:56 Temperature 97.9 F Pulse Rate 60 70 51 L Respiratory Rate 16 Blood Pressure 194/92 H Pulse Oximetry 100 98 98 Oxygen Delivery Method Room Air Room Air 12/08/23 13:56 12/08/23 14:00 12/08/23 14:00 Temperature Pulse Rate 52 L Respiratory Rate Blood Pressure 160/81 H 169/83 H Pulse Oximetry 98 Oxygen Delivery Method Room Air 12/08/23 14:30 12/08/23 14:31 12/08/23 14:31 Temperature Pulse Rate 45 L 44 L Respiratory Rate 18 19 Blood Pressure 153/70 H Pulse Oximetry 100 100 Oxygen Delivery Method Room Air 12/08/23 15:01 12/08/23 15:01 Temperature Pulse Rate 54 L Respiratory Rate 19 Blood Pressure 144/72 H Pulse Oximetry 99 Oxygen Delivery Method Room Air Medical Decision Making Lab Data Lab results reviewed: Yes I reviewed the patient's lab results. 12/08/23 13:50 12/08/23 13:50 Labs: Lab Results 12/08/23 12/08/23 Range/Units 13:43 13:50 WBC 9.4 (4.5-11.0) X10^3/uL RBC 4.54 (4.0-5.2) X10^6/uL Hgb 13.6 (12.0-16.0) g/dL Hct 40.9 (36-46) % MCV 90.3 (80-100) fL MCH 30.0 (26-34) PG MCHC 33.2 (30-36) % RDW 14.0 (11.6-14.8) % Plt Count 259 (150-400) X10^3/uL Neut % (Auto) 67.3 (50-75) % Lymph % (Auto) 25.0 (25-40) % Hodgeman % (Auto) 6.9 (3-14) % Eos % (Auto) 0.2 L (2-4) % Baso % (Auto) 0.6 (0-2) % Neut # (Auto) 6300 (9646-2625) /uL Lymph # (Auto) 2400 (3029-0359) /uL Hodgeman # (Auto) 700 (0-900) /uL Eos # (Auto) 0 (0-450) /uL Baso # (Auto) 100 (0-100) /uL Sodium 143 (137-145) mmol/L Potassium 3.8 (3.4-5.1) mmol/L Chloride 110 H (98-107) mmol/L Carbon Dioxide 24 (22-32) mmol/L BUN 21 H (7-17) mg/dL Creatinine 0.76 (0.52-1.04) mg/dL Estimated GFR > 60 (>60) mL/min BUN/Creatinine Ratio 27.6 H (6-22) Glucose 96 (70-100) mg/dL Calcium 9.6 (8.4-10.2) mg/dL Total Bilirubin 0.7 (0.2-1.3) mg/dL AST 32 (14-36) IU/L ALT 32 (<35) IU/L Alkaline Phosphatase 96 (38-126) U/L Total Protein 7.2 (6.3-8.2) g/dL Albumin 4.3 (3.5-5.0) g/dL Globulin 2.9 (1.7-4.1) g/dL Albumin/Globulin Ratio 1.5 (1.0-2.8) Lipase 30 (23-300) U/L Urine RBC 10-30/hpf H (0-5/HPF) Urine WBC 5-10/hpf H (0-5/HPF) Ur Squamous Epith Cells 1-5 /hpf (0-5/HPF) Urine Bacteria Few (2-10) H (None) Ur Culture Indicated? Specimen cultured Vol Urine Centrifuged 10ml (spun) Point of Care Testing Test Results Negative Urine Dip Bedside Urine Glucose Negative Bedside Urine Bilirubin - Negative Bedside Urine Ketone - Negative Urine Specific Pinon 1.030 Bedside Urine Occult Blood ++ Bedside Urine pH 6.0 Bedside Urine Protein - Negative Bedside Urine Urobilinogen - Negative Bedside Urine Nitrite - Negative Bedside Urine Leukocytes - Negative Esterase Point of care testing: Point of Care Testing Test Results Negative Urine Dip Bedside Urine Glucose Negative Bedside Urine Bilirubin - Negative Bedside Urine Ketone - Negative Urine Specific Pinon 1.030 Bedside Urine Occult Blood ++ Bedside Urine pH 6.0 Bedside Urine Protein - Negative Bedside Urine Urobilinogen - Negative Bedside Urine Nitrite - Negative Bedside Urine Leukocytes - Negative Esterase Imaging Data CT scan - abdomen/pelvis: Radiologist's Impression: PROCEDURE: CT ABDOMEN PELVIS W CON INDICATIONS: R flank and RLQ abd pain TECHNIQUE: After the administration of intravenous contrast, axial sections acquired from the lung bases to the pubic symphysis. Coronal and sagittal reformats were performed. For radiation dose reduction, the following was used: automated exposure control, adjustment of mA and/or kV according to patient size. COMPARISON: None. FINDINGS: Image quality: Diagnostic. Lower Chest: No significant findings. ABDOMEN: Liver: No solid mass. Diffuse fatty liver infiltration is noted. Gallbladder: No radiopaque gallstones or wall thickening. Biliary ducts: No biliary dilation. Pancreas: No ductal dilation. Spleen: Size is within normal limits. Adrenal Glands: No adrenal nodules. Kidneys and Ureters: Nonobstructing right-sided kidney stones are seen that measure up to 2 mm. No hydronephrosis is seen on either side. There is a 4 mm stone within the right ureterovesicular junction, as on series 2, image 75 and on series 3 image 38. No associated hydronephrosis is seen. Stomach and Bowel: A normal appendix is seen, as on series 3, image 37 and on series 2, image 70. No focal right lower quadrant inflammatory changes are seen. No dilated loops of small bowel are seen. No significant colonic abnormality is seen. The stomach is decompressed at the time of this study, limiting its evaluation. Peritoneum: No abnormal intraperitoneal fluid. No free air. Ventral Wall: No hernia. Abdominal Nodes: No retroperitoneal or mesenteric adenopathy by size criteria. Vessels: Aorta and inferior vena cava are normal in size. PELVIS: Pelvic Organs: The uterus appears normal for age. No adnexal masses are seen. Bladder: Unremarkable. Pelvic Nodes: No enlarged lymph nodes. Miscellaneous: No inguinal hernias are seen. Bones: No aggressive osseous abnormality. IMPRESSION: There is a 4 mm stone seen within the right ureterovesicular junction. No associated hydroureter or hydronephrosis can be seen at the time of this scan and this may be related to intermittently obstructing stone. A normal appendix is seen. No focal right lower quadrant inflammatory change is seen. Additional findings: Fatty liver infiltration MDM Narrative Medical decision making narrative: CT scan does show a right-sided distal ureteral stone. Kidney functions unremarkable. Urinalysis has no signs of infection. She was afebrile. Symptoms are relatively controlled. Discussed all this with the patient. Discussed the expected course of the findings over the next couple days. Discussed return precautions and follow-up instructions. She expressed understanding and agreement. Discharge Plan Departure Patient Disposition: Home Clinical Impression: Right ureteral stone Instructions: DI for Kidney Stones Activity Restrictions/Additional Instructions: Be sure that you were taking the medications as needed and as directed. Increase your fluid intake over the next couple days. Return to the emergency department for new symptoms to include fevers, pain that is not controlled, vomiting that is not controlled were inability to urinate like we discussed. Prescriptions: New ondansetron 4 mg tablet,disintegrating 4 mg PO Q6H PRN (Reason: nausea and vomiting) Qty: 10 0RF hydrocodone-acetaminophen 5-325 mg tablet 1 tab PO Q4-6H PRN (Reason: pain) Qty: 10 0RF No Action hydroxyzine HCl 25 mg tablet 25 mg PO TID PRN (Reason: anxiety) Qty: 30 2RF amlodipine 5 mg tablet 5 mg PO DAILY Qty: 90 3RF metoprolol succinate 50 mg tablet extended release 24 hr 50 mg PO QPM Qty: 90 0RF aspirin 81 mg tablet,chewable 81 mg PO DAILY Patient Comments: patient states does not take everyday because it is not with other meds. Referrals: Maura Garcia MD [Primary Care Provider] - Stand Alone Forms: Patient Portal/API
--- NOTE | 2023-12-08 14:23 | PC.NURSE ---
Pt reports urinary frequency and feeling as if she did not fully empty her bladder.
[2023-12-08 14:31] LABS: Alanine Aminotransferase 32 IU/L (<35); Albumin 4.3 g/dL (3.5-5.0); Albumin Globulin Ratio 1.5 (1.0-2.8); Alkaline Phosphatase 96 U/L (38-126); Aspartate Aminotransferase 32 IU/L (14-36); BUN Creatinine Ratio 27.6 (6-22); Bilirubin Total 0.7 mg/dL (0.2-1.3); Blood Urea Nitrogen 21 mg/dL (7-17); Calcium 9.6 mg/dL (8.4-10.2); Carbon Dioxide 24 mmol/L (22-32); Chloride 110 mmol/L (98-107); Estimated Glomerular Filt Rate > 60 mL/min (>60); Globulin 2.9 g/dL (1.7-4.1); Glucose 96 mg/dL (70-100); HEMOLYSIS < 15 (0-50); Lipase 30 U/L (23-300); Potassium 3.8 mmol/L (3.4-5.1); Sodium 143 mmol/L (137-145); Total Protein 7.2 g/dL (6.3-8.2)
== END 2023-12-08 15:52 | disposition home or self-care (01) ==
PROVIDERS: Emergency Provider Emergency Medicine; Family Provider Family Medicine; PCP Family Medicine
DX: N20.1 Calculus of ureter (principal); R19.7 Diarrhea, unspecified
CPT/HCPCS: 36415; 74177; 80053; 81003; 81015; 81025; 83690; 85025; 87086; 96374; 99284; J2405; Q9967

== ENCOUNTER → 2024-05-12 11:08 | Outpatient (CLI) | payer OTHER, SELFPAY | LOC: LAB 11:10 | PROVIDERS: Family Provider Family Medicine; PCP Family Medicine; Referring Provider Family Medicine; Visit Provider Family Medicine | DX: B82.9 Intestinal parasitism, unspecified (principal) | CPT/HCPCS: 87169 ==

== ENCOUNTER → 2024-09-09 14:34 | Outpatient (CLI) | payer OTHER, SELFPAY ==
[2024-09-09 15:37] LABS: Alanine Aminotransferase 31 IU/L (<35); Albumin 4.4 g/dL (3.5-5.0); Albumin Globulin Ratio 1.9 (1.0-2.8); Alkaline Phosphatase 113 U/L (38-126); Aspartate Aminotransferase 32 IU/L (14-36); BUN Creatinine Ratio 22.6 (6-22); Bilirubin Total 0.4 mg/dL (0.2-1.3); Blood Urea Nitrogen 21 mg/dL (7-17); Calcium 9.4 mg/dL (8.4-10.2); Carbon Dioxide 24 mmol/L (22-32); Chloride 108 mmol/L (98-107); Cholesterol 173 mg/dL (140-199); Estimated Glomerular Filt Rate > 60 mL/min (>60); Globulin 2.3 g/dL (1.7-4.1); Glucose 97 mg/dL (70-100); HDL Cholesterol 56 mg/dL (40-60); HEMOLYSIS < 15 (0-50); LDL Cholesterol Calculated 95 mg/dL (<100); Sodium 140 mmol/L (137-145); Total Protein 6.7 g/dL (6.3-8.2); Triglycerides 110 mg/dL (35-150)
[2024-09-09 16:39] LABS: Creatinine Urine Random 133.94 mg/dL
[2024-09-09 16:42] LABS: Microalbumin Urine Random 0.7 mg/dL (0-1.6)
== END ==
PROVIDERS: Family Provider Family Medicine; PCP Family Medicine; Referring Provider Family Medicine; Visit Provider Family Medicine
DX: I10 Essential (primary) hypertension (principal)
CPT/HCPCS: 36415; 80053; 80061; 82043; 82570

== ENCOUNTER → 2025-01-20 16:00 | Outpatient (CLI) | payer OTHER, SELFPAY ==
[2025-01-20 18:30] LABS: Urine N gonorrhoeae NOT DETECTED
[2025-01-20 18:33] LABS: Urine Chlamydia NOT DETECTED
== END ==
PROVIDERS: Family Provider Family Medicine; PCP Family Medicine; Visit Provider Student in an Organized Health Care Education/Training Program
DX: N94.89 Other specified conditions associated with female genital organs and menstrual cycle (principal); R30.0 Dysuria; N76.2 Acute vulvitis; Z11.3 Encounter for screening for infections with a predominantly sexual mode of transmission
CPT/HCPCS: 87086; 87210; 87491; 87591

== ENCOUNTER → 2025-01-20 16:29 | Outpatient (CLI) | payer OTHER, SELFPAY ==
[2025-01-20 19:06] LABS: Hep C Virus Ab w/Reflex Quant NEGATIVE s/c (NEGATIVE); Hepatitis B Surface Antigen NEGATIVE s/c (NEGATIVE)
== END ==
PROVIDERS: Family Provider Family Medicine; PCP Family Medicine; Referring Provider Student in an Organized Health Care Education/Training Program; Visit Provider Student in an Organized Health Care Education/Training Program
DX: Z11.3 Encounter for screening for infections with a predominantly sexual mode of transmission (principal); N76.2 Acute vulvitis
CPT/HCPCS: 36415; 86592; 86695; 86696; 86803; 87340

== ENCOUNTER → 2025-02-06 10:27 | Outpatient (CLI) | payer OTHER, SELFPAY | PROVIDERS: Family Provider Family Medicine; PCP Family Medicine; Visit Provider Nurse Practitioner Family | DX: R39.9 Unspecified symptoms and signs involving the genitourinary system (principal); N89.8 Other specified noninflammatory disorders of vagina | CPT/HCPCS: 87086; 87210 ==

== ENCOUNTER → 2025-02-27 10:26 | Outpatient (CLI) | payer OTHER, SELFPAY ==
[2025-02-27 11:48] LABS: Hepatitis B Surface Antigen NEGATIVE s/c (NEGATIVE)
[2025-02-27 11:57] LABS: Hep C Virus Ab w/Reflex Quant NEGATIVE s/c (NEGATIVE)
[2025-02-27 11:58] LABS: HIV 1 & 2 Ab/Ag 4th Gen Combo NEGATIVE (NEGATIVE)
[2025-02-27 13:26] LABS: Urine N gonorrhoeae NOT DETECTED
[2025-02-27 13:38] LABS: Urine Chlamydia NOT DETECTED
[2025-02-28 05:36] LABS: RPR Screen Non Reactive (Non Reactive)
== END ==
PROVIDERS: Family Provider Family Medicine; PCP Family Medicine; Referring Provider Family Medicine; Visit Provider Family Medicine
DX: N93.9 Abnormal uterine and vaginal bleeding, unspecified (principal); Z11.3 Encounter for screening for infections with a predominantly sexual mode of transmission
CPT/HCPCS: 36415; 86592; 86803; 87210; 87340; 87389; 87491; 87591

== ENCOUNTER → 2025-03-11 07:05 | Outpatient (CLI) | payer OTHER, SELFPAY ==
--- NOTE | 2025-03-11 07:05 | DI.US.S_ITS ---
PROCEDURE: US PELVIC COMPLETE INDICATIONS: POSTCOITAL BLEEDING X 1 OCCURRENCE. POSTMENOPAUSAL. NO HORMONE REPLACEMENT THERAPY. TECHNIQUE: Real-time scanning was performed of the pelvic organs, with image documentation. Additional endovaginal scanning was necessary due to incomplete visualization of the adnexal and endometrial structures by transabdominal scanning. COMPARISON: None. FINDINGS: Uterus: Uterus is retroverted and normal in size at 6.7 x 4.9 x 4.0 cm. The myometrium is heterogeneous. The endometrium measures 3 mm combined thickness. Ovaries: The right ovary measures 2.3 x 1.6 x 1.3 cm, with a calculated ovarian volume of 2.5 cc. The left ovary is not visualized due to overlying bowel gas and presumed atrophy. Other: No pathologic free abdominal or pelvic fluid. IMPRESSION: Endometrium measures 3 mm in thickness, within normal limits given postmenopausal bleeding. Findings suggest atrophy. We strive to produce accurate, complete, and clear reports of imaging services. To assist us in improving patient care, this report was composed using standard report templates and voice recognition software. Therefore, it may contain abnormal punctuation, insertions and/or omissions. Occasional wrong-word or sound-alike substitutions may occur. Though we review the report and make efforts to correct it, we do recommend that the report be read carefully in proper context to recognize any text inaccuracies. Dictated by: Paul Croft M.D. on 03/11/2025 at 10:56 Approved by: Paul Croft M.D. on 03/11/2025 at 10:57
== END ==
PROVIDERS: Family Provider Family Medicine; PCP Family Medicine; Referring Provider Family Medicine; Visit Provider Family Medicine
DX: N95.0 Postmenopausal bleeding (principal)
CPT/HCPCS: 76830; 76856

== ENCOUNTER → 2025-03-23 08:29 | Outpatient (CLI) | payer OTHER, SELFPAY | PROVIDERS: Family Provider Family Medicine; PCP Family Medicine; Referring Provider Family Medicine; Visit Provider Family Medicine | DX: N89.8 Other specified noninflammatory disorders of vagina (principal) | CPT/HCPCS: 87086; 87210 ==

== ENCOUNTER → 2025-04-13 08:13 | Outpatient (CLI) | payer OTHER, SELFPAY | PROVIDERS: Family Provider Family Medicine; PCP Family Medicine; Visit Provider Family Medicine | DX: N89.8 Other specified noninflammatory disorders of vagina (principal) | CPT/HCPCS: 87210 ==

== ENCOUNTER 2025-06-11 08:54 | Emergency (ER) | payer OTHER, SELFPAY ==
[2025-06-11] VITALS (13 sets, daily range): BP systolic 127–158; BP diastolic 62–72; PULSE 46–76; RESP 13–14; TEMP 36.7; O2SAT 97–99; BMI 28.7
[2025-06-11 09:21] LABS: Culture Indicated Urine Specimen Cultured
[2025-06-11 09:45] LABS: Add Manual Diff / Slide Review NO; Hematocrit 40.4 % (36-46); Hemoglobin 13.2 g/dL (12.0-16.0); Lymphocytes Absolute Auto 1300 /uL (1100-4500); Mean Corpuscular HGB Conc 32.7 % (30-36); Mean Corpuscular Hemoglobin 29.9 PG (26-34); Mean Corpuscular Volume 91.5 fL (80-100); Platelet Count 316 X10^3/uL (150-400)
[2025-06-11 09:50] LABS: Alanine Aminotransferase 21 IU/L (<35); Albumin 4.4 g/dL (3.5-5.0); Albumin Globulin Ratio 1.5 (1.0-2.8); Alkaline Phosphatase 97 U/L (38-126); Blood Urea Nitrogen 13 mg/dL (7-17); Calcium 9.4 mg/dL (8.4-10.2); Carbon Dioxide 24 mmol/L (22-32); Chloride 110 mmol/L (98-107); Estimated Glomerular Filt Rate > 60 mL/min (>60); Globulin 2.9 g/dL (1.7-4.1); Glucose 90 mg/dL (70-99); HEMOLYSIS < 15 (0-50); Potassium 3.9 mmol/L (3.4-5.1); Sodium 143 mmol/L (137-145); Total Protein 7.3 g/dL (6.3-8.2)
--- NOTE | 2025-06-11 10:07 | DI.CT.S_ITS ---
PROCEDURE: CT ABDOMEN PELVIS W CON INDICATIONS: Pelvic pain TECHNIQUE: After the administration of intravenous contrast, axial sections acquired from the lung bases to the pubic symphysis. Coronal and sagittal reformats were performed. For radiation dose reduction, the following was used: automated exposure control, adjustment of mA and/or kV according to patient size. COMPARISON: [facility], CT, CT ABDOMEN PELVIS W CON, 12/08/2023, 14:51. FINDINGS: Image quality: Diagnostic. Lower Chest: No significant findings. ABDOMEN: Liver: No solid mass. Gallbladder: No radiopaque gallstones or wall thickening. Biliary ducts: No biliary dilation. Pancreas: No ductal dilation. Spleen: Size is within normal limits. Adrenal Glands: No adrenal nodules. Kidneys and Ureters: No hydronephrosis. No solid mass. No complex renal cystic lesion which requires follow up. Stomach and Bowel: Normal colonic caliber, without significant wall thickening. Appendix is visualized and is within normal limits. No abscess collection. Peritoneum: No abnormal intraperitoneal fluid. No free air. Ventral Wall: No significant ventral hernia. Abdominal Nodes: No retroperitoneal or mesenteric adenopathy by size criteria. Vessels: Aorta and inferior vena cava are normal in size. PELVIS: Pelvic Organs: Unremarkable. Bladder: No bladder wall thickening, accounting for underdistention. Pelvic Nodes: No enlarged lymph nodes. Miscellaneous: No inguinal hernias are seen. Bones: No aggressive osseous abnormality. IMPRESSION: 1. No gross abnormality is seen in uterus and bilateral adnexa. 2. No bowel obstruction or abnormal bowel wall thickening. Normal appendix. No free fluid or free air. 3. No obstructing renal stones or hydronephrosis. Dictated by: Hair Liang M.D. on 06/11/2025 at 10:54 Approved by: Hair Liang M.D. on 06/11/2025 at 10:56
--- NOTE | 2025-06-11 10:37 | ED.FEMALEGU ---
HPI - Female Genitourinary General Chief complaint: Vaginal Bleeding Stated complaint: Vaginal bleeding on and off 2 months Time Seen by Provider: 06/11/25 10:01 Source: patient Mode of arrival: Family Vehicle History of Present Illness HPI Narrative: Patient seen by primary care in March for the same complaint. He has had off and on vaginal bleeding. Painless for the past 3 months. Had ultrasound in March of the pelvis which was reassuring. Patient had not had menstrual cycles in over 8 years, postmenopausal. Patient denies any dizziness syncope shortness of breath. Patient describes her vaginal bleeding as having blood on toilet paper when she wipes. No heavy bleeding. Patient was not started any medications by primary care. Related Data Home Medications ?Medication ?Instructions ?Recorded ?Confirmed aspirin 81 mg chewable tablet 81 mg PO DAILY 04/12/18 04/13/25 Previous Rx's ?Medication ?Instructions ?Recorded amlodipine 5 mg tablet 5 mg PO DAILY #90 tabs 04/23/24 metronidazole 500 mg tablet 500 mg PO BID #7 tabs 03/02/25 metronidazole 500 mg tablet 500 mg PO BID #14 tabs 03/23/25 fluconazole 150 mg tablet 150 mg PO ONCE #2 tabs 04/08/25 cephalexin 500 mg capsule 500 mg PO BID #10 caps 04/17/25 cefdinir 300 mg capsule 300 mg PO BID #10 caps 06/11/25 Allergies Allergy/AdvReac Type Severity Reaction Status Date / Time No Known Drug Allergies Allergy Verified 04/13/25 08:12 Patient History Medical History Obesity (BMI 30.0-34.9) Lung nodule Hypertension Low back pain Family History Mother Hypertension Hyperlipidemia Diabetes mellitus Cancer Father Myocardial infarct Arrhythmia Exam Initial Vital Signs Initial Vital Signs: Vital Signs Pulse Rate 76 06/11/25 09:10 Pulse Oximetry 97 06/11/25 09:10 Course Orders Ordered: ED Orders 06/11/25 09:05 Urine Culture Stat Urine Microscopic Stat 06/11/25 09:19 CBC Auto Diff [Complete Blood Count AUTO DIFF] Stat CMP [Comprehensive Metabolic Panel] Stat 06/11/25 10:07 CT abdomen pelvis w con Stat Discontinued Medications Cefdinir (Cefdinir 300 Mg Capsule) 300 mg PO NOW ONE Stop: 06/11/25 12:38 Sodium Chloride (Normal Saline 0.9%) 500 mls @ 1,000 mls/hr IV BOLUS ONE Stop: 06/11/25 10:36 Last Infusion: 06/11/25 11:48 Dose: Infused Documented By: Admin: 06/11/25 10:43 Dose: 1,000 mls/hr Documented By: JAIME Vital Signs Vital signs: Vital Signs - 8 hr 06/11/25 09:10 06/11/25 09:11 06/11/25 09:11 Temperature Pulse Rate 76 68 Respiratory Rate Blood Pressure 158/72 H Pulse Oximetry 97 98 Oxygen Delivery Method 06/11/25 09:30 06/11/25 09:31 06/11/25 09:31 Temperature Pulse Rate 46 L 49 L Respiratory Rate 14 Blood Pressure 150/67 H Pulse Oximetry 98 99 Oxygen Delivery Method Room Air 06/11/25 09:34 06/11/25 10:00 06/11/25 10:00 Temperature 98.0 F Pulse Rate 48 L 47 L Respiratory Rate 13 Blood Pressure 158/72 H 141/65 H Pulse Oximetry 98 97 Oxygen Delivery Method Room Air 06/11/25 10:30 06/11/25 10:30 06/11/25 11:00 Temperature Pulse Rate 60 Respiratory Rate Blood Pressure 147/65 H 139/64 Pulse Oximetry 98 Oxygen Delivery Method 06/11/25 11:00 06/11/25 11:30 06/11/25 11:30 Temperature Pulse Rate 47 L 47 L Respiratory Rate Blood Pressure 139/63 Pulse Oximetry 98 98 Oxygen Delivery Method MDM - Female Genitourinary Lab Data 06/11/25 09:19 06/11/25 09:19 Labs: Lab Results 06/11/25 06/11/25 Range/Units 09:05 09:19 WBC 8.7 (4.5-11.0) X10^3/uL RBC 4.42 (4.0-5.2) X10^6/uL Hgb 13.2 (12.0-16.0) g/dL Hct 40.4 (36-46) % MCV 91.5 (80-100) fL MCH 29.9 (26-34) PG MCHC 32.7 (30-36) % RDW 14.1 (11.6-14.8) % Plt Count 316 (150-400) X10^3/uL Neut % (Auto) 75.0 (50-75) % Lymph % (Auto) 14.6 L (25-40) % [place] % (Auto) 8.9 (3-14) % Eos % (Auto) 0.7 L (2-4) % Baso % (Auto) 0.8 (0-2) % Neut # (Auto) 6500 (5414-4955) /uL Lymph # (Auto) 1300 (3777-9282) /uL [place] # (Auto) 800 (0-900) /uL Eos # (Auto) 100 (0-450) /uL Baso # (Auto) 100 (0-100) /uL Sodium 143 (137-145) mmol/L Potassium 3.9 (3.4-5.1) mmol/L Chloride 110 H (98-107) mmol/L Carbon Dioxide 24 (22-32) mmol/L BUN 13 (7-17) mg/dL Creatinine 0.75 (0.52-1.04) mg/dL Estimated GFR > 60 (>60) mL/min BUN/Creatinine Ratio 17.3 (6-22) Glucose 90 (70-99) mg/dL Calcium 9.4 (8.4-10.2) mg/dL Total Bilirubin 0.6 (0.2-1.3) mg/dL AST 30 (14-36) IU/L ALT 21 (<35) IU/L Alkaline Phosphatase 97 (38-126) U/L Total Protein 7.3 (6.3-8.2) g/dL Albumin 4.4 (3.5-5.0) g/dL Globulin 2.9 (1.7-4.1) g/dL Albumin/Globulin Ratio 1.5 (1.0-2.8) Urine RBC 10-30/hpf H (0-5/HPF) Urine WBC >100/hpf H (0-5/HPF) Ur Squamous Epith Cells 1-5 /hpf (0-5/HPF) Urine Bacteria Moderate (10-30) H (None) Ur Culture Indicated? Specimen cultured Vol Urine Centrifuged 10ml (spun) Urine Dip Bedside Urine Glucose Negative Bedside Urine Bilirubin - Negative Bedside Urine Ketone - Negative Urine Specific [place] 1.020 Bedside Urine Occult Blood +++ Bedside Urine pH 6.0 Bedside Urine Protein - Negative Bedside Urine Urobilinogen - Negative Bedside Urine Nitrite - Negative Bedside Urine Leukocytes +++ [address] scan - abdomen/pelvis: Radiologist's Impression: [address] [address] [address] Scan Report Signed Patient: Ashly Miller MR#: [id number] : 1970 Acct:[id number] Age/Sex: 55 / F Date of Service: 06/11/25 Loc: ED Accession Number: [id number] Procedure: CT abdomen pelvis w con Ordering Provider: Henry Joyce MD PROCEDURE: CT ABDOMEN PELVIS W CON INDICATIONS: Pelvic pain TECHNIQUE: After the administration of intravenous contrast, axial sections acquired from the lung bases to the pubic symphysis. Coronal and sagittal reformats were performed. For radiation dose reduction, the following was used: automated exposure control, adjustment of mA and/or kV according to patient size. COMPARISON: [facility], CT, CT ABDOMEN PELVIS W CON, 12/08/2023, 14:51. FINDINGS: Image quality: Diagnostic. Lower Chest: No significant findings. ABDOMEN: Liver: No solid mass. Gallbladder: No radiopaque gallstones or wall thickening. Biliary ducts: No biliary dilation. Pancreas: No ductal dilation. Spleen: Size is within normal limits. Adrenal Glands: No adrenal nodules. Kidneys and Ureters: No hydronephrosis. No solid mass. No complex renal cystic lesion which requires follow up. Stomach and Bowel: Normal colonic caliber, without significant wall thickening. Appendix is visualized and is within normal limits. No abscess collection. Peritoneum: No abnormal intraperitoneal fluid. No free air. Ventral Wall: No significant ventral hernia. Abdominal Nodes: No retroperitoneal or mesenteric adenopathy by size criteria. Vessels: Aorta and inferior vena cava are normal in size. PELVIS: Pelvic Organs: Unremarkable. Bladder: No bladder wall thickening, accounting for underdistention. Pelvic Nodes: No enlarged lymph nodes. Miscellaneous: No inguinal hernias are seen. Bones: No aggressive osseous abnormality. IMPRESSION: 1. No gross abnormality is seen in uterus and bilateral adnexa. 2. No bowel obstruction or abnormal bowel wall thickening. Normal appendix. No free fluid or free air. 3. No obstructing renal stones or hydronephrosis. Dictated by: Hair Liang M.D. on 06/11/2025 at 10:54 Approved by: Hair Liang M.D. on 06/11/2025 at 10:56 [facility] Narrative Medical decision making narrative: Patient seen by primary care in March for the same complaint. He has had off and on vaginal bleeding. Painless for the past 3 months. Had ultrasound in March of the pelvis which was reassuring. Patient had not had menstrual cycles in over 8 years, postmenopausal. Patient denies any dizziness syncope shortness of breath. Patient describes her vaginal bleeding as having blood on toilet paper when she wipes. No heavy bleeding. Patient was not started any medications by primary care. MDM After history and exam, CBC CMP urinalysis CT abdomen pelvis Differential considered: Includes but not limited to dysfunctional uterine bleeding. Postmenopausal bleeding Medical records reviewed: Office visit March 2025 with primary care, ultrasound pelvis February 2025 Lab Test results independently reviewed as above. Pertinent findings: WBC 8.7 hemoglobin 13.2 hematocrit 40.4 platelets 316 BUN 13 creatinine 0.75 urinalysis positive WBC positive bacteria positive leukocyte esterase Imaging studies independently reviewed: CT abdomen pelvis no acute finding Consultations: 11:08 a.m., Dr. Garcia answered but she is not on-call. She would like Dr. Rachel to be paged. He was paged at 11:30 a.m. 12:30 p.m. no call back. Re-evaluations: Reviewed results with patient. They are reassuring. She will follow up with her family doctor. May need referral to insert this through her primary care. 12:47 p.m.. Updated patient we have been trying to call primary care for update but they did not call back. She desires discharge home. Agrees with treatment for UTI. I will give her referral for [facility] [employer] [facility]. Return precautions reviewed. She desires discharge home. Discussion: Appropriate for discharge home exam is reassuring laboratory studies are reassuring patient does have primary care for follow up. Return precautions reviewed. She desires discharge home. Diagnosis: Postmenopausal bleeding Discharge Plan Departure Patient Disposition: Home Clinical Impression: Dysfunctional uterine bleeding, Acute UTI Instructions: DI for Urinary Tract Infection (UTI), Postmenopausal Bleeding Activity Restrictions/Additional Instructions: Please see your family doctor for re-evaluation. You may need referral to [facility] [employer] [facility]. Please call provided [facility] [employer] office today or tomorrow for follow up. You are being treated for urinary tract infection. Antibiotics have been started patient is sent to your pharmacy to [facility]. No new medications or indicated at this time. Your laboratory studies imaging studies are reassuring. Return if worse if any questions or concerns. Prescriptions: New cefdinir 300 mg capsule 300 mg PO BID Qty: 10 0RF No Action amlodipine 5 mg tablet 5 mg PO DAILY Qty: 90 3RF metronidazole 500 mg tablet 500 mg PO BID Qty: 7 0RF metronidazole 500 mg tablet 500 mg PO BID Qty: 14 0RF fluconazole 150 mg tablet 150 mg PO ONCE Qty: 2 0RF Rx Instructions: take 1 tablet, repeat in 3 days cephalexin 500 mg capsule 500 mg PO BID Qty: 10 0RF aspirin 81 mg tablet,chewable 81 mg PO DAILY Patient Comments: patient states does not take everyday because it is not with other meds. Referrals: Maura Garcia MD [Primary Care Provider, Family Practice] Barrett Smith MD [Physician, BATCH OPERATOR] Stand Alone Forms: Patient Portal/API
[2025-06-11] MEDS: SODIUM CHLORIDE 0.9% 500 ML 1000 ML IV (10:43)
[2025-06-11] MEDS: CEFDINIR 300 MG CAPSULE PO (13:20)
== END 2025-06-11 13:29 | disposition home or self-care (01) ==
PROVIDERS: Emergency Provider Emergency Medicine; Family Provider Family Medicine; PCP Family Medicine
DX: N93.9 Abnormal uterine and vaginal bleeding, unspecified (principal); N39.0 Urinary tract infection, site not specified; R10.2 Pelvic and perineal pain
CPT/HCPCS: 36415; 74177; 80053; 81003; 81015; 85025; 87077; 87086; 87186; 96360; 99284; Q9967

== ENCOUNTER → 2025-06-17 15:22 | Outpatient (CLI) | payer OTHER, SELFPAY | PROVIDERS: Family Provider Family Medicine; PCP Family Medicine; Visit Provider Family Medicine | DX: N39.0 Urinary tract infection, site not specified (principal) | CPT/HCPCS: 87086 ==

== ENCOUNTER → 2025-06-17 16:09 | Outpatient (CLI) | payer OTHER, SELFPAY ==
[2025-06-17 18:26] LABS: Urine N gonorrhoeae NOT DETECTED
[2025-06-17 18:31] LABS: Urine Chlamydia NOT DETECTED
[2025-06-18 15:32] LABS: Hepatitis B Surface Antigen NEGATIVE s/c (NEGATIVE)
[2025-06-18 15:48] LABS: Hep C Virus Ab w/Reflex Quant NEGATIVE s/c (NEGATIVE)
== END ==
PROVIDERS: Family Provider Family Medicine; PCP Family Medicine; Referring Provider Family Medicine; Visit Provider Family Medicine
DX: Z11.3 Encounter for screening for infections with a predominantly sexual mode of transmission (principal); N39.0 Urinary tract infection, site not specified
CPT/HCPCS: 36415; 86592; 86803; 87086; 87340; 87491; 87591

== ENCOUNTER → 2025-10-09 12:51 | Outpatient (CLI) | payer OTHER, SELFPAY ==
--- NOTE | 2025-10-09 12:53 | DI.MG.S_ITS ---
MM screening mammo BI: 10/09/2025. BI-RADS: 1 CLINICAL: 55-year old female for bilateral screening mammogram. Tyrer-Cuzick lifetime risk of 25.4%. Current reported family history of breast cancer: mother. PRIOR EXAMS 07/27/2023. MAMMOGRAPHY TECHNIQUE: 2D and 3D (tomosynthesis) digital mammographic views obtained, with additional images as needed for full coverage. Current study was also evaluated with a Computer Aided Detection (CAD) system. DENSITY C. The breasts are heterogeneously dense, which may obscure small masses. MAMMOGRAPHY FINDINGS Bilateral: No suspicious mass, asymmetry, microcalcification, or other abnormality seen. IMPRESSION: * No evidence of malignancy. RECOMMENDATIONS Bilateral * According to the Tyrer-Cuzick Risk Assessment Model, based on the information provided your patient has a greater than 20% lifetime risk for developing breast cancer. Consider supplemental screening with breast MRI and participation in a high risk screening program. * Annual screening mammography. OVERALL ASSESSMENT CATEGORY BI-RADS-1: Negative. The [employer] recommends annual screening mammography beginning at age 40 for women with average risk of breast cancer. ELECTRONICALLY SIGNED: Abbey Hare M.D. on 10/13/2025 at 12:00:59 PM PT Interpreting Station ID: [id number]
== END ==
PROVIDERS: Family Provider Family Medicine; PCP Family Medicine; Referring Provider Family Medicine; Visit Provider Family Medicine
DX: Z12.31 Encounter for screening mammogram for malignant neoplasm of breast (principal); R92.333 Mammographic heterogeneous density, bilateral breasts; Z80.3 Family history of malignant neoplasm of breast
CPT/HCPCS: 77063; 77067